=== PATIENT | female | born 1975 | race Caucasian/White ===

== ENCOUNTER 2024-09-29 18:57 | Emergency (ER) | payer BC, SELFPAY ==
--- OUTSIDE RECORDS SUMMARY | 2024-09-29 19:01 | XMS_ITS | Encounter Summary ---
Author Organization [facility] Address [address] [place] [address] Care Team Providers Care Real Estate Investor Name Role Phone Rusty Gamble PA-C Primary Care Provider [phone] Rusty Gamble PA-C Unavailable [phone] Rusty Gamble PA-C Unavailable [phone] Reason for Visit * Reason Onset Date Comments Lab Result Notice 07/05/2017 Encounter Details Date Type Department Care Team (Late st Contact Info) Description 07/05/2017 [facility] Medical Advice [address], [address] [place] [address] Rusty Gamble PA-C [address] [place] [address] Lab Result Notice Social History Tobacco Use Types Packs/Day Years Used Date Smoking Tobacco: Former Cigarettes Q uit: 02/19/2016 Smokeless Tobacco: Never Comments:pt does not want fu rther information on smoking cesation Alcohol Use Standard Drinks/Week Comments No 0 (1 standard drink = 0.6 oz pur e alcohol) occasionally - 1/wk Comments No Sex and Gender Information Value Date Recorded Sex Assigned at Not on file 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 Gender Identity Not on file Sexual Orientation Not on file documented as of this encounter Plan of Treatment Not on file documented as of this encounter Visit Diagnoses Not on filedocumented in this encounter Additional Health Concerns Assessment Noted Time PHQ-9 Depression Total Score: 1 06/28/20 17 3:34 PM CDT documented as of this encounter Care Teams Real Estate Investor Relationship Specialty Start Date End Date Rusty Gamble PA-C PCP - General Physician Paint Maker - Medical 05/16/16 Rusty Gamble PA-C [address] [address] PCP - Assigned PCP 07/07/17 11/25/18 Rusty Gamble PA-C [id number] [address] Assigned PCP 07/07/17 05/13/21 documented as of this encounter
--- OUTSIDE RECORDS SUMMARY | 2024-09-29 19:01 | XMS_ITS | Encounter Summary ---
Author Organization [facility] Address [address] [place] [address]. [place] [address] Care Team Providers Care Community Coordinator Name Role Phone Rusty Gamble PA-C Primary Care Provider [phone] Rusty Gamble PA-C Unavailable [phone] Rusty Gamble PA-C Unavailable [phone] Reason for Visit * Reason Onset Date Comments Refill Request 05/21/2017 Levothyroxine Encounter Details Date Type Department Care Team (Late st Contact Info) Description 05/21/2017 [facility] Medical Advice [address], [address] [place] [address] Rusty Gamble PA-C [address] [place] [address] Refill Request (Levothyroxine) Social History Tobacco Use Types Packs/Day Years [...] on file 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 Gender Identity Not on file Sexual Orientation Not on file documented as of this encounter Miscellaneous Notes * Telephone Encounter - Rosalva Cornejo RN - 05/21/2017 9:03 AM CDT Levothyroxine Last Written Prescription Date: 10/08/2016 Last Quantity: 90, # refills: 1 Last Office Visit with [facility], [facility] or [facility] prescribing provider: 12/24/2016 TSH Date Value Ref Range Status 10/05/2016 1.04 0.40 - 4.00 mU/L Final Medication is being filled for 1 time refill only due to: Patient needs to be seen because patient was advised to follow up in 6 months for blood sugars and thyroid. Patient notified via [employer]. Rosalva Cornejo RN documented in this encounter Plan of Treatment Not on file documented as of this encounter Visit Diagnoses Diagnosis Other specified hypothyroidism documented in this encounter Additional Health Concerns Assessment Noted Time PHQ-9 Depression Total Score: 1 12/09/19 17 7:06 AM CDT documented as of this encounter Care Teams Community Coordinator Relationship Specialty Start Date End Date Rusty Gamble PA-C PCP - General Physician Sales Supervisor - Medical 05/16/16 Rusty Gamble PA-C [address] [place] [address] PCP - Assigned PCP 07/07/17 11/25/18 Rusty Gamble [place] [address] [place] [address] Assigned PCP 07/07/17 05/13/21 documented as of this encounter
--- OUTSIDE RECORDS SUMMARY | 2024-09-29 19:01 | XMS_ITS | Clinical Summary ---
Author Organization [facility] Address [address] [place] [address] Care Team Providers Care C.O.D. Biller Name Role Phone Rusty Gamble PA-C Primary Care Provider Allergies No known active allergies Medications * This document contains information received from the source organization and may not represent a complete record from that organization. levothyroxine (SYNTHROID/LEVOTH ROID) 175 MCG tabletIndications :Hypothyroidism, unspecified type TAKE ONE TABLET BY MOUTH ONCE DAILY 30 tablet 11 11/07/2017 Active metFORMIN (GLUCOPHAGE) 500 MG tabletIndications :Prediabetes Take 1 tablet (500 mg) by mouth 2 times daily (with meals) 180 tablet 1 05/13/2018 Active sertraline (ZOLOFT) 100 MG tabletIndications :Anxiety 1 tablet orally daily 90 tablet 1 07/18/2018 Active losartan (COZAAR) 25 MG tabletIndications :Essential hypertension TAKE 1 TABLET BY MOUTH ONCE DAILY 90 tablet 09/19/2018 Active Active Problems Problem Noted Date Diagnosed Date Anxiety 06/28/2017 Cholecystitis 10/23/2016 Biliary colic 10/22/2016 Adjustment disorder with depressed mood 08/08/20 16 obesity 11/01/2015 Postsurgical hypothyroidism 11/01/2015 History of thyroidectomy 01/17/2012 Hypothyroidism 01/17/2012 Resolved Problems Problem Noted Date Diagnosed Date Resolved Date Gestational diabetes mellitus, class A2 12/19/2011 05/13/2018 Immunizations Name Administration Dates Next Due DTaP, Unspecified 08/09/1999 Influenza Vaccine, 6+MO IM ( QUADRIVALENT W/PRESERVATIVES) 05/18/2017 MMR 08/09/1999 OPV, unspecified 08/09/1999 TDAP Vaccine (Adacel) 01/19/2012 Td (Adult), Adsorbed 03/18/2003 Family History Medical History Relation Comments Coronary Artery Disease Father CABG Diabetes Father Heart Disease Father Cancer Maternal Grandmother pancreatiti s Thyroid Disease Mother Thyroid Disease Sister 2 Relation Status Comments Brother Alive Father Alive Maternal Grandfather Maternal Grandmother Mother Alive Paternal Grandfather Paternal Grandmother Sister 1 Alive Sister 2 Son Alive Social History Tobacco Use Types Packs/Day Years Used Date Smoking Tobacco: Former Cigarettes Q uit: 02/19/2016 Smokeless Tobacco: Never Tobacco Cessation:Ready to Q uit: No Comments:pt does not want further information on smoking cesation Alcohol Use Standard Drinks/Week Comments No 0 (1 standard drink = 0.6 oz pur e alcohol) occasionally - 1/wk PHQ-2 Answer Date Recorded PHQ-2 Score 0 05/13/2018 Adolescent Education Answer Date Record ed Getting School Help Needed Not on file 06/19 Comments No Sex and Gender Information Value Date Recorded Sex Assigned at Not on file 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 Gender Identity Not on file Sexual Orientation Not on file Last Filed Vital Signs Vital Sign Reading Time Taken Comments Blood Pressure 126/88 06/26/2018 10:18 AM CDT Pulse 80 06/26/2018 10:07 AM CDT Temperature 37.2 C (98.9 F) 05/13/2018 4:51 PM CDT Respiratory Rate 18 06/13/2018 2:05 PM CDT Oxygen Saturation 97% 06/26/2018 10:07 AM CDT Inhaled Oxygen Concentration - - Weight 132.9 kg (293 lb) 05/13/2018 4:51 PM CDT Height 168.9 cm (5' 6.5) 11/04/2017 8:55 AM TRAIN PLANNER Body Mass Index 46.58 11/04/2017 8:55 AM TRAIN PLANNER Plan of Treatment Not on file Insurance [place] [address] [place] [address] Advance Directives For more information, please contact: [phone] * Full Code (Latest Code Status on File) Date Activated Date Inactivated Comments 10/23/2016 5:19 PM 10/24/2016 12:29 PM * Full Code Date Activated Date Inactivated Comments 10/22/2016 9:01 PM 10/23/2016 5:19 PM Care Teams C.O.D. Biller Relationship Specialty Start Date End Date Rusty Gamble PA-C PCP - General Physician Munitions Factory Worker - Medical 05/16/16
--- OUTSIDE RECORDS SUMMARY | 2024-09-29 19:01 | XMS_ITS | Encounter Summary ---
Author Organization [facility] Address [address] [place] [address] Care Team Providers Care Reinsurance Accountant Name Role Phone Rusty Gamble PA-C Primary Care Provider [phone] Rusty Gamble PA-C Unavailable [phone] Rusty Gamble PA-C Unavailable [phone] Encounter Details Date Type Department Care Team (Late st Contact Info) Description 01/10/2018 [facility] Medical Advice [address], [address] [place] [address] Nida Escalera APRN [facility] [address] [place], [place] [id number] Social History Tobacco Use Types Packs/Day Years [...] on file 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 Gender Identity Not on file Sexual Orientation Not on file documented as of this encounter Plan of Treatment Not on file documented as of this encounter Visit Diagnoses Not on filedocumented in this encounter Additional Health Concerns Assessment Noted Time PHQ-9 Depression Total Score: 5 01/12/20 18 7:40 AM CDT documented as of this encounter Care Teams Reinsurance Accountant Relationship Specialty Start Date End Date Rusty Gamble PA-C PCP - General Physician Tube Depatcher - Medical 05/16/16 Rusty Gamble PA-C [address] [address] [address] PCP - Assigned PCP 07/07/17 11/25/18 Rusty Gamble PA-C [address] [address] [address] Assigned PCP 07/07/17 05/13/21 documented as of this encounter
--- OUTSIDE RECORDS SUMMARY | 2024-09-29 19:01 | XMS_ITS | Clinical Summary ---
Author Organization [employer] Address [place], [place] [address] Care Team Providers Care Delicatessen Department Manager Name Role Phone CuevaKeisha NP Primary Care Provider [phone] Allergies No known active allergies Medications CPAPIndications :Severe obstructive sleep apnea CPAP machine for home use at pressure: 4-16 cmw , Heated humidifier x 1 q 5 yr, Humidifier chamber x 1 q 6 mo, Nasal interface mask x 1 q 3 mos, Nasal pillow x 2 q mo x1 q 3mos, with cushion x 1 q mo, Heated tubing x 1 q 3 mo, Headgear x 1 q 6 mo, Filters: Disposable x 2 q mo non-disposable filters x1 q 6mo, Length of Need: 99 months, Frequency of use: Daily 1 Each 11 10/20/19 22 Active polyethylene glycol-electrol yte (GOLYTELY) 236-22.74-6.74 -5.86 gram suspensionIndic ations:Encounte r for screening colonoscopy Drink 2 liters the day before the procedure and 2 liters 6 hours prior to procedure 4000 mL 08/02/20 23 Active aspirin (ECOTRIN) 81 mg enteric coated tabletIndicatio ns:Controlled type 2 diabetes mellitus without complication, without long-term current use of insulin (HC) TAKE ONE TABLET BY MOUTH EVERY DAY WITH A MEAL 90 Tablet 3 02/06/20 24 Active dulaglutide (TRULICITY) 3 mg/0.5 mL subcutaneous penIndications: Controlled type 2 diabetes mellitus without complication, without long-term current use of insulin (HC) Inject 3 mg subcutaneous once weekly. 6 mL 3 02/07/20 24 Active buPROPion (WELLBUTRIN SR) 150 mg Sustained-Relea se tabletIndicatio ns:Anxiety and depression Take 1 Tablet (150 mg) by mouth two times daily. 180 Tablet 1 02/07/20 24 Active levothyroxine (SYNTHROID) 200 mcg tabletIndicatio ns:Hypothyroidi sm (acquired) Take 1 Tablet (200 mcg) by mouth once daily. 90 Tablet 1 02/07/20 24 Active losartan (COZAAR) 50 mg tabletIndicatio ns:HTN (hypertension) Take 1 Tablet (50 mg) by mouth once daily. 90 Tablet 1 02/07/20 24 Active metFORMIN (GLUCOPHAGE) 500 mg tabletIndicatio ns:Controlled type 2 diabetes mellitus without complication, without long-term current use of insulin (HC) Take 2 Tablets (1,000 mg) by mouth two times daily with meals. 400 Tablet 1 02/07/20 24 Active sertraline (ZOLOFT) 100 mg tabletIndicatio ns:Anxiety and depression TAKE ONE TABLET BY MOUTH EVERY DAY 90 Tablet 1 07/24/20 24 Active traZODone (DESYREL) 150 mg tabletIndicatio ns:Difficulty sleeping TAKE ONE TABLET BY MOUTH AT BEDTIME . MAY REPEAT ONCE 180 Tablet 09/07/20 24 Active atorvastatin (LIPITOR) 20 mg tabletIndicatio ns:Hypercholest erolemia TAKE ONE TABLET BY MOUTH AT BEDTIME 90 Tablet 09/07/20 24 Active atorvastatin (LIPITOR) 20 mg tabletIndicatio ns:Hypercholest erolemia Take 1 Tablet (20 mg) by mouth at bedtime. 90 Tablet 1 02/07/20 24 2023 Discontinued traZODone (DESYREL) 150 mg tabletIndicatio ns:Difficulty sleeping Take 1 Tablet (150 mg) by mouth at bedtime, may repeat once. 180 Tablet 1 02/07/20 24 2023 Discontinued Active Problems Problem Noted Date Diagnosed Date Pap smear for cervical cancer screening 06/23/20 22 Overview (08/21/2022): 06/2022 NIL/HPV negative. Plan: Pap/HPV due 06/2027. ELIZABETH (obstructive sleep apnea) 05/16/2019 Hypercholesterolemia 03/04/2019 Overview (03/04/2019): 02/2019: Started on Lipitor 20 mg. Controlled type 2 diabetes kadi josue without complication, without long-term current use of insulin 03/03/2019 Overview (03/03/2019): Prediabetes range up to 02/2019 A1C of 6.5. Metformin increased 2,000 mg twice a day Myopia of both eyes with astigmatism 11/25/2018 Retained tympanostomy tubes 08/200911/14/2010 Dysfunction of eustachian tube 11/14/2010 Chronic rhinitis 11/14/2010 Adjustment disorder with mixed anxiety and depre ssed mood 04/25/2009 Tobacco use disorder 01/01/2006 Overview (01/01/2006): 1 ppd. started age 20 Depressive disorder, not elsewhere classified Herpes simplex without mention of complication 0 01/01/2006 HYPOTHYROIDISM 03/27/2005 Overview (08/30/2008): CT neck: 07/2008 1. Markedly enlarged heterogenous thyroid gland, consistent with a multinodular goiter, with marked enlargement of the right side of the thyroid gland. 2. No other neck mass identified. 3. Deviation of the trachea to the left, with mild side to side narrowing. 4. Multiple small to intermediate size lymph nodes, without evidence for pathologically enlarged lymph nodes. FNA 03/2008 THYROID, INFERIOR RIGHT LOBE, ULTRASOUND GUIDED FNA WITH IMMEDIATE PATHOLOGIST ADEQUACY ASSESSMENT: 1. Findings compatible with Talia's (lymphocytic) thyroiditis 2. No cytologic evidence of malignancy 3. See microscopic description and comment OBESITY NOS 02/25/2002 Hypertension Resolved Problems Problem Noted Date Diagnosed Date Resolved Date DISORDER, CARBOHYDRATE METABOLISM NOS 02/25/2002 01/01/2006 Hirsutism 02/25/2002 01/01/2006 Other acne 02/25/2002 01/01/2006 Prediabetes 03/03/2019 Encounters Date Type Department Care Team Description 09/03/2024 Refill [facility] [address] [place] [address] Cueva, Keisha E, SAFEKEEPING CLERK Refill Request (Trazodone, Atorvastatin) 07/21/2024 Refill [facility] [address] [place], [place] [id number] Keisha Cueva NP Refill Request (Sertraline) from Last 3 Months Immunizations Name Administration Dates Next Due COVID-19 vaccine (Shefali-J& J) PF, MDV 01/28/2021 COVID-19 vaccine (Moderna 50mcg/0.5mL) 12YO+ BIVALENT PF, MDV 07/17/2022 COVID-19 vaccine (Moderna Satya marcial 50mcg/0.25mL) PF, MDV 09/21/2021 DTP 08/09/1999 Hepatitis B (Adult) 01/22/2022,09/21/2021,2020 Influenza, IIV4 07/17/2022,,10/28/2020,2017,05/18/2017 MMR 08/09/1999 Oral Polio Vaccine 08/09/1999 Pneumococcal Conj 20-valent (Prevnar 20) 07/17/2022 Pneumococcal Poly,23-Valent (Pneumovax) 10/28/2020 Td (Age >=7 Years) 03/18/2003 Tdap 01/22/2022,01/19/2012 Family History Medical History Relation Name Comments Diabetes Father Cancer Maternal Grandmother Thyroid cancer Pancreatitis Maternal Grandmother Thyroid Disease Maternal Grandmother Cancer-colon Paternal Grandmother Lupus Sister Thyroid Disease Sister Cancer-breast No Family History Relation Name Status Comments Brother Alive Father Alive Maternal Grandfather Maternal Grandmother Mother Alive Paternal Grandfather Paternal Grandmother Sister Social History Tobacco Use Types Packs/Day Years Used Date Smoking Tobacco: Every Day Cigarettes 0.5 15 Smokeless Tobacco: Never Tobacco Cessation:Ready to Q uit: Yes; Counseling Given: Yes Alcohol Use Standard Drinks/Week Comments Yes 0.8 (1 standard drin k = 0.6 oz pure alcohol) Alcoholic Drinks/day: infrequent <2 per month Humiliation, Afraid, Rape, and Kick questionnair e Answer Date Recorded Fear of Current or Ex-Partner No Emotionally Abused No 03/03/2019 Physically Abused No 03/03/2019 Sexually Abused No 03/03/2019 PHQ-2 Answer Date Recorded PHQ-2 TOTAL SCORE 0 02/07/2024 [facility] [place] [facility] - Occupational Stress Questionnaire Answer Date Recorded Feeling of Stress Not at all 03/03/2019 Exercise Vital Sign Answer Date Recorde d Days of Exercise per Week 0 days 2018 Minutes of Exercise per Session 0 min 03/03/2019 Social Connections Answer Date Recorded Frequency of Communication with Friends and Fami ly 0 05/23/2023 Financial Resource Strain Answer Date R ecorded Difficulty of Paying Living Expenses 3 05/23/2023 Difficulty of Paying Living Expenses Not on file 05/23/2023 Food Insecurity Answer Date Recorded Worried About Running Out of Food in the Last Ye ar 1 05/23/2023 Transportation Needs Answer Date Record ed Lack of Transportation (Medical) 1 05/23/2023 Housing Stability Answer Date Recorded Unable to Pay for Housing in the Last Year 1 05/23/2023 Comments No Sex and Gender Information Value Date Recorded Sex Assigned at Not on file Legal Sex Female 6: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 Gender Identity Not on file Sexual Orientation Not on file Occupation Industry Job Start Date Job End Date Not on file Not on file Not on file Not on file Obstetrics History Para Term AB IAB SAB Ectopic Multiple Livin g Live Births 0 0 0 0 0 0 0 0 0 0 Last Filed Vital Signs Vital Sign Reading Time Taken Comments Blood Pressure 132/84 02/07/2024 7:42 AM CDT Pulse 72 02/07/2024 7:42 AM CDT Temperature 36.6 C (97.8 F) 12/31/2022 2:21 PM CDT Respiratory Rate 18 12/31/2022 2:21 PM CDT Oxygen Saturation 96% 12/31/2022 4:56 PM CDT Inhaled Oxygen Concentration - - Weight 127 kg (280 lb) 02/07/2024 7:42 AM CDT Height 166.4 cm (5' 5.5) 02/07/2024 7:42 AM CDT Body Mass Index 45.89 02/07/2024 7:42 AM CDT Plan of Treatment Health Maintenance Due Date Last Done Comments Colonoscopy through age 75 2022 COVID-19 vaccine series ( season) 2024 07/17/2022, 09/21/2021, 01/28/2021 Influenza for age 9-49 05/24/2024 , 09/21/2021, 10/28/2020, Additional history exists Mammogram for age 45-75 07/12/2024 07/12/2023, 04/15 BMI (ht and wt on same day) for age 18+ 02/06/2025 02/07/2024, 05/23/2023, 07/17/2022, Additional history exists Depression screening for age 12+ 02/06/2025 02/07/2024, 05/24/2023, 05/23/2023, Additional history exists Pap test for age 21-65 07/17/2027 , 07/17/2022, 03/03/2019, Additional history exists Lipids for age 45-75 02/06/2029 02/07/2024, 05/23/2023, 07/17/2022, Additional history exists Tetanus booster 01/23/2032 01/22/2022, 12/23, 03/18/2003 Hepatitis B series for Diabetes Completed 01/22/2022, 09/21/2021, 10/28/2020 Tdap Completed 01/22/2022, 01/19/2012 Hepatitis C screening for ag e 18-79 Completed 07/17/2022 Pneumococcal series for age 6-49 Completed 07/17/20, 10/28/2020 HIV for age 15-65 Completed 05/23/2023 Procedures Procedure Name Priority Date/Time Associated Diagnosis Comments LIPID PANEL Routine 02/07/2024 7:39 AM CDT Controlled type 2 diabetes mellitus without complication, without long-term current use of insulin (HC) XR MAMMO SUMAN BILAT SCREEN Routine 07/12/2023 2:41 PM CDT Visit for screening mammogram ANTI HIV 1/2 Routine 05/23/2023 7:27 AM CDT Screening for HIV without presence of risk factors SENIOR DATA DEVELOPER THIN PREP PAP SCREEN IMAGED Routine 07/17/2022 8:00 AM CDT Pap smear for cervical cancer screening ANTI HCV Routine 07/17/2022 7:39 AM CDT Need for hepatitis C screening test from Last 3 Months or Most Recently Relevant to Health Maintenance Results * LIPID PANEL (02/07/2024 7:39 AM CDT) CHOLESTEROL,TOTAL 186 100 - 199 mg/dL 02/07/2024 5:28 PM CDT [facility] Comment: Cholesterol, Total Reference Ranges Desirable <200 mg/dL Borderline 200-239 mg/dL High >=240 mg/dL TRIGLYCERIDES 143 <150 mg/dL 02/07/2024 5:28 PM CDT [facility] HDL CHOLESTEROL 51 >40 mg/dL 5:28 PM CDT [facility] NON-HDL CHOLESTEROL 135 <145 mg/dl 02/07/2024 5:28 PM CDT [facility] CHOL/HDL RATIO 3.65 <4.50 02/07/2024 5:28 PM CDT [facility] LDL CHOLESTEROL 106 <=130 mg/dL 02/07/2024 5:28 PM CDT [facility] VLDL CHOLESTEROL 29 <=30 mg/dL 02/07/2024 5:28 PM CDT [facility] PROVIDER ORDERED STATUS RANDOM 02/07/2024 5:28 PM CDT [facility] Blood BLOOD SPECIMEN / Unknown Venipuncture / Unknown 02/07/2024 7:39 AM CDT 02/07/2024 7:44 AM CDT us Keisha Cueva NP CHEMISTRY Final Res ult [facility] [address] [place] [address], [place] * XR MAMMO SUMAN BILAT SCREEN (07/12/2023 2:41 PM CDT) Anatomical Region Laterality Modality BREASTS, Breast Left, Breast Right Bilateral Mammography Impressions 07/15/2023 11:28 AM CDT There is no radiographic evidence for malignancy. Recommend annual mammograms. MAMMOGRAM ASSESSMENT: ACR 1 Negative PATIENTS: You will also receive a letter with your examination results in an easy to read format. If you have questions about your results, please contact your referring provider. Narrative 07/15/2023 11:28 AM CDT For Patients: As a result of the Century Cures Act, medical imaging exams and procedure reports are released immediately into your electronic medical record. You may view this report before your referring provider. If you have questions, please contact your health care provider. XR MAMMO SUMAN BILAT SCREEN [[id number]] CLINICAL HISTORY: This is an asymptomatic 47 y.o. patient. INDICATION FOR EXAM: Mammogram Screening. TECHNIQUE: CC & MLO views were obtained. This study was evaluated with the assistance of Computer-Aided Detection. Breast Tomosynthesis was used in interpretation. COMPARISON FILM: Yes 04/15/20 FINDINGS: The breasts have scattered areas of fibroglandular density. There are no dominant masses, suspicious micro calcifications or areas of architectural distortion. us Keisha Cueva SAFEKEEPING CLERK MAMMO Final Res ult * ANTI HIV 1/2 (05/23/2023 7:27 AM CDT) HIV-1/HIV-2 SCREEN Non-Reacti ve Non-Reacti ve 05/25/2023 10:56 PM CDT [facility] LAB[facility]AT[facility] Comment:HIV-1 p24 and HIV-1/ HIV-2 Ab Not Detected. Blood BLOOD SPECIMEN / Unknown Venipuncture / Unknown 05/23/2023 7:27 AM CDT 05/23/2023 7:27 AM CDT us Keisha Cueva SAFEKEEPING CLERK SEND OUTS Final Res ult [facility] [address] [place] [address], [place] * SENIOR DATA DEVELOPER THIN PREP PAP SCREEN IMAGED (07/17/2022 8:00 AM CDT) Case Report Gynecologic Cytology Report Case: [id number] Authorizing Provider: Keisha Cueva NP Collected: 07/17/2022 0800 Ordering Location: [facility] Received: 07/17/2022 0828 Clinic First Screen: Jan Conroy Specimen: SENIOR DATA DEVELOPER ThinPrep Vial Screening, Cervical 08/05/2022 9:38 AM CEMENT GRINDING MILL OPERATOR [facility] INTERPRETATION/ RESULT NEGATIVE FOR INTRAEPITHELIAL LESION OR MALIGNANCY (NIL) (none) 08/05/2022 9:38 AM CEMENT GRINDING MILL OPERATOR [facility] ENTRAL LABORATORY IMEN ADEQUACY Satisfactory for evaluation Endocervical component present 08/05/2022 9:38 AM CEMENT GRINDING MILL OPERATOR [facility] ENTRAL LABORATORY HPV REQUEST HPV and PAP 08/05/2022 9:38 AM CEMENT GRINDING MILL OPERATOR [facility] ENTRAL LABORATORY Date of LMP 02/12/2022 08/05/2022 9:38 AM CEMENT GRINDING MILL OPERATOR [facility] ENTRAL LABORATORY Last Pap Date 03/03/19 08/05/2022 9:38 AM CEMENT GRINDING MILL OPERATOR [facility] LABORATORY-C ENTRAL LABORATORY Last Pap Result NIL 9:38 AM CEMENT GRINDING MILL OPERATOR [facility] ENTRAL LABORATORY Abnormal Pap or Brooks Bx in last 5 years No 08/05/2022 9:38 AM CEMENT GRINDING MILL OPERATOR [facility] ENTRAL LABORATORY Menstrual Status Irregular Periods 08/05/2022 9:38 AM CEMENT GRINDING MILL OPERATOR [facility] Brooks Bx Done Today No 08/05/2022 9:38 AM CEMENT GRINDING MILL OPERATOR [facility] Additional Information None given 08/05/2022 9:38 AM CEMENT GRINDING MILL OPERATOR [facility] Comment: Cytology is screened at [facility], Central Laboratory - [address], [place] [address] and [facility] - [address] [place] [address], [place] [address] and [facility] - [address] [place] [address] Interpreted at [facility] - [address] [place], [place] [address] Automated Review Successful 08/05/2022 9:38 AM [facility] Comment:Specimen processed s uccessfully by automated air tube releaser device, ThinPrep Imaging System, [employer] ANCILLARY TESTING SENIOR DATA DEVELOPER HPV Ordered, Please see separate report 08/05/2022 9:38 AM [facility] EN[facility] Note The pap test is a screening technique, not a diagnostic procedure. It is used primarily to screen for squamous cancers and precursor lesions. Published studies have shown that it is subject to both false negative and false positive results. The pap test should not be used as the sole means to diagnose or exclude pre-malignant and malignant lesions. 08/05/2022 9:38 AM [facility] ENTRMT LABORATORY Other (Cervical) Non-Blood / Unknown 07/17/2022 8:00 AM CDT 07/17/2022 8:28 AM CDT Keisha Cueva NP PATHOLOGY/CYTOLOGY Final Result Performing Organization Address [facility] Co de Phone Number [facility] [address] [place] [address], [place] * ANTI HCV (07/17/2022 7:39 AM CDT) HEPATITIS C ANTIBODY Non-React tasha Non-React tasha 07/19/2022 9:45 PM CDT [facility] Comment:Antibodies to HCV no t detected; does not exclude the possibility of exposure to HCV. Blood BLOOD SPECIMEN / Unknown Venipuncture / Unknown 07/17/2022 7:39 AM CDT 07/17/2022 7:39 AM CDT Keisha Cueva NP SEND OUTS Final Res ult Performing Organization Address City/[facility] Co de Phone Number [facility] [address] [place] [address], [place] from Last 3 Months or Most Recently Relevant to Health Maintenance Insurance [place] [address] Advance Directives * Full Code (Latest Code Status on File) Date Activated Date Inactivated Comments 10/29/2008 5:46 PM 10/31/2008 12:56 AM * Full Code Date Activated Date Inactivated Comments 10/29/2008 1:06 PM 10/29/2008 5:46 PM Care Teams Delicatessen Department Manager Relationship Specialty Start [place] [address] [place], [place] [id number] PCP - General Nurse Practitioner 08/05/18
--- OUTSIDE RECORDS SUMMARY | 2024-09-29 19:01 | XMS_ITS | Encounter Summary ---
Author Organization [place] Address [address] [place] [address]. [place] [address] Care Team Providers Care Clinical Nursing Manager Name Role Phone Rusty Gamble PA-C Primary Care Provider [phone] Rusty Gamble PA-C Unavailable [phone] Rusty Gamble PA-C Unavailable [phone] Reason for Visit * Reason Onset Date Comments Medication Refill 11/07/2017 levothyroxine (SYNTHROID/LEVOTHROID) 175 MCG tablet Encounter Details Date Type Department Care Team (Late st Contact Info) Description 11/06/[address] [facility] [address] [address] [facility] [address], [address] [place] [address] Rusty Gamble PA-C [address] [place] [address] Medication Refill (levothyroxine (SYNTHROID/LEVOTHROID) 175 MCG tablet) Social History Tobacco Use Types Packs/Day Years [...] on file Legal Sex Female 3:19 AM NECK SKEWER Gender Identity Not on file Sexual Orientation Not on file documented as of this encounter Miscellaneous Notes * Telephone Encounter - Rosalva Cornejo RN - 11/07/2017 11:32 AM CST Prescription approved per [facility] Refill Protocol. Rosalva Cornejo RN SKEWER * Telephone Encounter - Rosaura Scruggs - 11/07/2017 8:13 AM CST Requested Prescriptions Pending Prescriptions Disp Refills ??? levothyroxine (SYNTHROID/LEVOTHROID) 175 MCG tablet [Pharmacy Med Name: LEVOTHYROXIN 175MCG TAB] 30 tablet 1 Last Written Prescription Date: 07/03/17 Last Fill Quantity: 30, # refills: 1 Last Office Visit: 11/04/2017 Future Office Visit: Sig: TAKE ONE TABLET BY MOUTH ONCE DAILY Thyroid Protocol Passed 11/06/2017 5:48 PM Passed - Patient is 12 years or older Passed - Recent or future visit with authorizing provider's specialty Patient had office visit in the last year or has a visit in the next 30 days with authorizing provider. See Patient Info tab in inbasket, or Choose Columns in Meds & Orders section of the refill encounter. Passed - Normal TSH on file in past 12 months Recent Labs Lab Test 11/04/17 0935 TSH 2.03 Passed - No active on record If patient is or has had a positive test, please check TSH. Passed - No positive test in past 12 months If patient is or has had a positive test, please check TSH. SKEWER documented in this encounter Plan of Treatment Not on file documented as of this encounter Visit Diagnoses Diagnosis Hypothyroidism, unspecified type documented in this encounter Additional Health Concerns Assessment Noted Time PHQ-9 Depression Total Score: 1 06/28/20 17 3:34 PM CDT documented as of this encounter Care Teams Clinical Nursing Manager Relationship Specialty Start Date End Date Rusty Gamble PA-C PCP - General Physician Senior Resident Care Director - Medical 05/16/16 Rusty Gamble PA-C [address] [address] PCP - Assigned PCP 07/07/17 11/25/18 Rusty Gamble PA-C [address] [address] Assigned PCP 07/07/17 05/13/21 documented as of this encounter
--- OUTSIDE RECORDS SUMMARY | 2024-09-29 19:01 | XMS_ITS | Referral Summary ---
Author Organization [place] Address [address] [place] [address] Care Team Providers Care Compressor Engineer Name Role Phone Rusty Gamble PA-C Primary Care Provider [phone] Allergies No known active allergies Medications * [...] Vaccine (Adacel) 01/19/2012 Td (Adult), Adsorbed 03/18/2003 Social History Tobacco Use Types Packs/Day Years [...] on file Legal Sex Female 3:19 AM SALES AND BUSINESS DEVELOPMENT MANAGER Gender Identity Not on file Sexual Orientation [...] 168.9 cm (5' 6.5) 11/04/2017 8:55 AM SALES AND BUSINESS DEVELOPMENT MANAGER Body Mass Index 46.58 11/04/2017 8:55 AM SALES AND BUSINESS DEVELOPMENT MANAGER Plan of Treatment Not on file [place] [id number] MED[employer] CHO[employer] Advance Directives For more information, please contact: [phone] * Full Code (Latest Code Status on File) Date Activated Date Inactivated Comments 10/23/2016 5:19 PM 10/24/2016 12:29 PM * Full Code Date Activated Date Inactivated Comments 10/22/2016 9:01 PM 10/23/2016 5:19 PM Care Teams Compressor Engineer Relationship Specialty Start Date End Date Rusty Gamble PA-C PCP - General Physician Board Certified Family Physician - Medical 05/16/16
--- OUTSIDE RECORDS SUMMARY | 2024-09-29 19:01 | XMS_ITS | Encounter Summary ---
Author Organization [facility] Address [address] [place] [address]. [place] [address] Care Team Providers Care Analyst Programmer Name Role Phone Rusty Gamble PA-C Primary Care Provider [phone] Rusty Gamble PA-C Unavailable [phone] Rusty Gamble PA-C Unavailable [phone] Reason for Visit * Reason Onset Date Comments Erroneous encounter-disregard 05/22/2017 le vothyroxine (SYNTHROID/LEVOTHROID) 200 MCG tablet Encounter Details Date Type Department Care Team (Late st Contact Info) Description 05/22/[address], [address] [place] [address] Rusty Gamble PA-C [address] [place] [address] Erroneous encounter-disregard (levothyroxine (SYNTHROID/LEVOTHROID) 200 MCG tablet) Social History Tobacco Use Types [...] on file Legal Sex Female 3:19 AM BEARINGIZER Gender Identity Not on file Sexual Orientation Not on file documented as of this encounter Miscellaneous Notes * Telephone Encounter - Rosaura Scruggs - 05/23/2017 8:24 AM CDT 3 month Supply sent 05/21/17. levothyroxine (SYNTHROID/LEVOTHROID) 200 MCG tablet Last Written Prescription Date: 05/21/17 Last Quantity: 90, # refills: 0 Last Office Visit with [facility], P or [facility] prescribing provider: 12/24/2016 TSH Date Value Ref Range Status 10/05/2016 1.04 0.40 - 4.00 mU/L Final Fax sent to pharm informing above. Please disregard request. Rosaura Scruggs, XRT May 23, 2017 8:24 AM documented in this encounter Plan of Treatment Not on file documented as of this encounter Visit Diagnoses Diagnosis Other specified hypothyroidism documented in this encounter Additional Health Concerns Assessment Noted Time PHQ-9 Depression Total Score: 1 12/09/19 17 7:06 AM CDT documented as of this encounter Care Teams Analyst Programmer Relationship Specialty Start Date End Date Rusty Gamble PA-C PCP - General Physician Jd Edwards - Medical 05/16/16 Rusty Gamble PA-C [address] [address] [address] PCP - Assigned PCP 07/07/17 11/25/18 Rusty Gamble PA-C [address] [address] [address] Assigned PCP 07/07/17 05/13/21 documented as of this encounter
[2024-09-29 19:10] VITALS: BP 126/87; PULSE 77; RESP 17; TEMP 36.5; O2SAT 96; BMI 44.9
--- NOTE | 2024-09-29 20:06 | ED.NAVMDI ---
HPI - Nausea/Vomiting/Diarrhea General Chief complaint: Nausea/Vomiting Stated complaint: UP resp 3 wks-GI upset with back ache-vomiting Time Seen by Provider: 09/29/24 20:01 History of Present Illness HPI Narrative: This 48-year-old female comes in with her . She reports upper respiratory symptoms including cough and some fever starting about 3 weeks ago. Those symptoms resolved but now over the past several days she has had vomiting and diarrhea. She states that she has diabetes and has not taken any medicines or checked her blood sugars. She states that she her persistent vomiting has made her not want to try to take her medicines. She arrives here with normal vital signs. She does not report any abdominal pain. She does report some pain in her low back. She denies having any symptoms of dysuria. Related Data Home Medications ?Medication ?Instructions ?Recorded ?Confirmed aspirin 81 mg tablet,delayed 81 mg PO DAILY 09/29/24 09/29/24 release atorvastatin 20 mg tablet 20 mg PO QPM 09/29/24 09/29/24 bupropion HCl 150 mg tablet,12 hr 150 mg PO BID 09/29/24 09/29/24 sustained-release dulaglutide 3 mg/0.5 mL 3 mg subcut 09/29/24 subcutaneous pen injector (Trulicity) levothyroxine 200 mcg tablet 200 mcg PO DAILY 09/29/24 09/29/24 losartan 50 mg tablet 50 mg PO DAILY 09/29/24 09/29/24 metformin 500 mg tablet 1,000 mg PO BID 09/29/24 09/29/24 sertraline 100 mg tablet 100 mg PO DAILY 09/29/24 09/29/24 trazodone 150 mg tablet 150 mg PO QPM 09/29/24 09/29/24 trazodone 50 mg tablet 25 - 100 mg PO QPM 09/29/24 09/29/24 Allergies Allergy/AdvReac Type Severity Reaction Status Date / Time No Known Drug Allergies Allergy Verified 09/29/24 19:17 Review of Systems Status of ROS: Reports: 10 or more systems reviewed and unremarkable except as noted in History and below Narrative: Constitutional: No fevers, no weight gain or loss. Eyes: No discharge. No vision changes. HENT: No congestion, no sore throat, no ear pain. Cardiovascular: No chest pain, no palpitations. Respiratory: No shortness of breath, no wheezes, no cough. Gastrointestinal: No abdominal pain. Vomiting and diarrhea as described above. Genitourinary: No dysuria, no hematuria. Musculoskeletal: Normal range of motion. Skin: No rashes, no pruritis. Neurological: No dizziness, weakness, sensory change, speech change. Endo/Heme/Allergies: No bruising or bleeding. No polydipsia. Pysch: no suicidality, no anxiety, no insomnia. All other systems reviewed and are negative. PFSH PFSH Social History How often do you have a drink containing alcohol: never AUDIT-C Alcohol total score: 0 Non-prescribed substance use: denies use Exam Narrative: Exam Narrative: Constitutional: Well-developed, well-nourished, no acute distress. HEENT: Normocephalic, atraumatic. Neck: Normal range of motion. Nontender. Supple. Heart: Regular. No murmurs. Normal rate. Intact distal pulses. Lungs: Clear to auscultation. No chest discomfort. No wheezes, rhonchi, or rales. Abdomen: Normal bowel sounds. Nontender. No rebound tenderness. Genitalia: Deferred. Back: No midline tenderness. Normal range of motion. Extremities: Normal range of motion. No injury. Skin: Intact. No rash. Warm. No erythema or pallor. Neurologic: No altered sensation. No weakness. Alert and oriented. Psychiatric: No suicidality. No anxiety or depression. No insomnia. Nursing notes and vitals signs are reviewed. Const: Vital Signs, click to edit/add: Vital Signs - 24 hr 09/29/24 19:10 09/29/24 22:24 09/29/24 23:58 Temperature 97.7 F 97.4 F L Pulse Rate [Right Pulse Oximeter] 77 70 71 Respiratory Rate 17 17 18 Blood Pressure [Ri ght Upper Arm] 126/87 130/74 136/88 Pulse Oximetry 96 95 98 Oxygen Delivery Me thod Room Air Room Air Room Air Course Vital Signs Vital signs: Initial Vital Signs Temperature 97.7 F 09/29/24 19:10 Temperature Source Temporal Artery Scan 09/29/24 19:10 Pulse Rate 77 09/29/24 19:10 Pulse Rhythm Regular 09/29/24 19:10 Pulse Strength 3+ Normal 09/29/24 19:10 Respiratory Rate 17 09/29/24 19:10 Blood Pressure 126/87 09/29/24 19:10 Blood Pressure Mean 100 09/29/24 19:10 Blood Pressure Position Sitting 09/29/24 19:10 Pulse Oximetry 96 09/29/24 19:10 Oxygen Delivery Method Room Air 09/29/24 19:10 Vital Signs Temperature 97.7 F 09/29/24 19:10 Pulse Rate 77 09/29/24 19:10 Respiratory Rate 17 09/29/24 19:10 Blood Pressure 126/87 09/29/24 19:10 Pulse Oximetry 96 09/29/24 19:10 Oxygen Delivery Method Room Air 09/29/24 19:10 Temperature 97.4 F L 09/29/24 23:58 Pulse Rate 71 09/29/24 23:58 Respiratory Rate 18 09/29/24 23:58 Blood Pressure 136/88 09/29/24 23:58 Pulse Oximetry 98 09/29/24 23:58 Oxygen Delivery Method Room Air 09/29/24 23:58 Medications Administered Medications: Generic Name Dose Route Start Last Admin Trade Name Freq PRN Reason Stop Dose Admin Hydromorphone HCl 0.5 mg 09/29/24 23:57 09/30/24 00:05 Hydromorphone 0.5 Mg/0.5 Ml Inj IVP 09/29/24 23:58 0.5 mg ONCE ONE Administration Discontinued Medications Generic Name Dose Route Start Last Admin Trade Name Freq PRN Reason Stop Dose Admin Sodium Chloride 1,000 mls @ 1,000 mls/hr 09/29/24 20:15 09/29/24 22:20 0.9 % Sodium Chloride 1000 Ml IV 09/29/24 21:14 Infused .Q1H DECLAN Infusion Ketorolac Tromethamine 30 mg 09/29/24 22:16 09/29/24 22:20 Ketorolac 30 Mg/Ml Inj IVP 09/29/24 22:17 30 mg ONCE ONE Administration Ondansetron HCl 4 mg 09/29/24 20:04 09/29/24 21:20 Ondansetron 2 Mg/Ml Inj IVP 09/29/24 20:05 4 mg ONCE ONE Administration MDM - Nausea/Vomiting/Diarrhea MDM Narrative Medical decision making narrative: This patient comes in reporting nausea vomiting and diarrhea but also has back pain. An IV was established where she received a L of normal saline along with Toradol and Zofran. Later she did receive Dilaudid also as she can not planed of ongoing back pain. Her urinalysis did return with microscopic hematuria and the patient states that she does have a history of kidney stones. The CT scan of the abdomen and pelvis is obtained therefore and does not show any of evidence of obstructive uropathy. Additionally her lab results also returned with reassuring findings. The patient is feeling better with these treatments and is okay to return home. I did provide [facility] prescriptions for Toradol and Zofran. Lab Data Labs: Lab Results 09/29/24 09/29/24 Range/Units 20:08 21:12 WBC 6.46 (4.50-11.00) K/uL RBC 4.77 (4.00-5.20) m/uL Hgb 13.5 (12.0-16.0) gm/dL Hct 41.3 (33.0-51.0) % MCV 87 (80-100) fL MCH 28 (26-34) pg MCHC 33 (32-36) gm/dL RDW Coeff of Maria Del Carmen 13.1 (11.5-15.5) % Plt Count 270 (140-440) K/uL Neut % (Auto) 53.4 (42.0-72.0) % Lymph % (Auto) 37.8 (20-44) % Conway % (Auto) 6.2 (0.0-11.0) % Eos % (Auto) 1.4 (0.0-7.0) % Baso % (Auto) 0.3 (0.0-3.0) % Neut # (Auto) 3.45 (1.7-7.0) K/uL Lymph # (Auto) 2.44 (0.90-2.90) K/uL Conway # (Auto) 0.40 (0.00-0.90) K/UL Eos # (Auto) 0.09 (0.00-0.50) K/uL Baso # (Auto) 0.02 (0.00-0.30) K/uL Abs Immat Gran (auto) 0.06 (0.00-0.30) K/uL Imm/Tot Granulo (auto) 0.9 % Sodium 135 (135-149) mmol/L Potassium 3.3 L (3.6-5.1) mmol/L Chloride 99 (96-114) mmol/L Carbon Dioxide 25 (20-32) mmol/L Anion Gap 11 (7-15) mEq/L BUN 17 (5-24) mg/dL Creatinine 0.7 (0.5-1.5) mg/dL Estimated Creat Clear 90.36 Estimated GFR 108 ml/min Glucose 176 H (60-115) mg/dL Calcium 9.0 (8.4-10.6) mg/dL Urine Color Yellow (Yellow) Urine Appearance Clear (Clear) Urine pH 6.0 (5.0-8.5) Ur Specific Latham 1.025 (1.000-1.030) Urine Protein 1+ A (Negative) Urine Glucose (UA) Negative (Negative) Urine Ketones Negative (Negative) Urine Blood 3+ A (Negative) Urine Nitrite Negative (Negative) Urine Bilirubin Negative (Negative) Urine Urobilinogen 1.0 (0.2-1.0) Ur Leukocyte Esterase Negative (Negative) Urine RBC 25-50 A (0-2) Urine WBC 0-2 (0-5) Ur Squamous Epith Cells Many A (None-Few) Amorphous Sediment Moderate A (None) Urine Bacteria Many A (None) Imaging Data CT scan - abdomen: Radiologist's impression: 1. No acute findings in the abdomen or pelvis on this noncontrast exam. No hydronephrosis or obstructing urinary calculi. 2. Indeterminate left adrenal nodule. This could be further evaluated with nonemergent adrenal protocol CT or MRI. 3. Noncalcified pulmonary nodules in the right middle lobe measuring up to 4 mm. Follow-up per Fleischner society guidelines. 4. Mild splenomegaly. Discharge Plan Discharge Clinical Impression: Gastroenteritis Patient Disposition: Home, Self-Care Condition: Improved Additional Instructions: Take medication as needed and directed. Follow up with MD return if worsening. Prescriptions: No Action losartan 50 mg tablet 50 mg PO DAILY metformin 500 mg tablet 1,000 mg PO BID bupropion HCl 150 mg tablet sustained-release 12 hr 150 mg PO BID atorvastatin 20 mg tablet 20 mg PO QPM trazodone 50 mg tablet 25 - 100 mg PO QPM sertraline 100 mg tablet 100 mg PO DAILY aspirin 81 mg tablet,delayed release (DR/EC) 81 mg PO DAILY trazodone 150 mg tablet 150 mg PO QPM levothyroxine 200 mcg tablet 200 mcg PO DAILY Trulicity 3 mg/0.5 mL pen injector 3 mg subcut Follow Up/Referrals: Keisha Cueva, WENDY, EDUCATION DIRECTOR [Primary Care Provider] - Stand Alone Forms: Usentric Info Instructions
[2024-09-29 20:54] LABS: Appearance Urine Clear (Clear); Bilirubin Urine Negative (Negative); Blood Urine 3+ (Negative); Color Urine Yellow (Yellow); Glucose Urine Negative (Negative); Ketones Urine Negative (Negative); Leukocyte Esterase Urine Negative (Negative); Nitrite Urine Negative (Negative); Protein Urine 1+ (Negative); Specific Gravity Urine 1.025 (1.000-1.030)
--- OUTSIDE RECORDS SUMMARY | 2024-09-29 20:57 | XMS_ITS | Clinical Summary ---
Author Organization [facility] Address [address] [place] [address] Care Team Providers Care Journeyman Welder Name Role Phone Rusty Gamble PA-C Primary [...] on file Legal Sex Female 3:19 AM AUDIO DIRECTOR Gender Identity Not on file Sexual Orientation [...] 168.9 cm (5' 6.5) 11/04/2017 8:55 AM AUDIO DIRECTOR Body Mass Index 46.58 11/04/2017 8:55 AM AUDIO DIRECTOR Plan of Treatment Not on file [place] [id number] MEDICA CHOICE Advance Directives For more information, please contact: [phone] * Full Code (Latest Code Status on File) Date Activated Date Inactivated Comments 10/23/2016 5:19 PM 10/24/2016 12:29 PM * Full Code Date Activated Date Inactivated Comments 10/22/2016 9:01 PM 10/23/2016 5:19 PM Care Teams Journeyman Welder Relationship Specialty Start Date End Date Rusty Gamble PA-C PCP - General Physician Elastic Assembler - Medical 05/16/16
--- OUTSIDE RECORDS SUMMARY | 2024-09-29 20:57 | XMS_ITS | Encounter Summary ---
Author Organization [facility] Address [address] [place] [address]. [place] [address] Care Team Providers Care Executive Services Administrator Name Role Phone Rusty Gamble PA-C Primary Care Provider [phone] Rusty Gamble PA-C Unavailable [phone] Rusty Gamble PA-C Unavailable [phone] Reason for Visit * Reason Onset Date Comments Medication Refill 11/07/2017 levothyroxine (SYNTHROID/LEVOTHROID) 175 MCG tablet Encounter Details Date Type Department Care Team (Late st Contact Info) Description 11/06/[address] [facility] [address] [facility], [address] [place] [address] Rusty Gamble PA-C [address] [place] [address] Medication Refill (levothyroxine (SYNTHROID/LEVOTHROID) 175 [...] on file Legal Sex Female 3:19 AM QUANTITATIVE EQUITY HEAD Gender Identity Not on file Sexual Orientation Not on file documented as of this encounter Miscellaneous Notes * Telephone Encounter - Rosalva Cornejo RN - 11/07/2017 11:32 AM CST Prescription approved per [facility] Refill Protocol. oRsalva Cornejo RN TITATIVE EQUITY HEAD * Telephone Encounter - Rosaura Scruggs - [...] had a positive test, please check TSH. TITATIVE EQUITY HEAD documented in this encounter Plan of Treatment Not on file documented as of this encounter Visit Diagnoses Diagnosis Hypothyroidism, unspecified type documented in this encounter Additional Health Concerns Assessment Noted Time PHQ-9 Depression Total Score: 1 06/28/20 17 3:34 PM CDT documented as of this encounter Care Teams Executive Services Administrator Relationship Specialty Start Date End Date Rusty Gamble PA-C PCP - General Physician Care Giver - Medical 05/16/16 Rusty Gamble PA-C [address] [address] [address] PCP - Assigned PCP 07/07/17 11/25/18 Rusty Gamble PA-C [address] [address] [address] Assigned PCP 07/07/17 05/13/21 documented as of this encounter
--- OUTSIDE RECORDS SUMMARY | 2024-09-29 20:57 | XMS_ITS | Encounter Summary ---
Author Organization [facility] Address [address] [place] [address] Care Team Providers Care Turret Punch Operator Name Role Phone Rusty Gamble PA-C Primary Care Provider [phone] Rusty Gamble PA-C Unavailable [phone] Rusty Gamble PA-C Unavailable [phone] Encounter Details Date Type Department Care Team (Late st Contact Info) Description 01/10/2018 [facility] Advice [address], [address] [place] [address] Nida Escalera APRN RESIDENT ASSISTANT CNA [address] [place], [place] [id number] Social History Tobacco Use Types Packs/Day Years [...] on file Legal Sex Female 3:19 AM SOFTWARE DEVELOPMENT INTERN Gender Identity Not on file Sexual Orientation Not on file documented as of this encounter Plan of Treatment Not on file documented as of this encounter Visit Diagnoses Not on filedocumented in this encounter Additional Health Concerns Assessment Noted Time PHQ-9 Depression Total Score: 5 01/12/20 18 7:40 AM CDT documented as of this encounter Care Teams Turret Punch Operator Relationship Specialty Start Date End Date Rusty Gamble PA-C PCP - General Physician Data Control Assistant - Medical 05/16/16 Rusty Gamble PA-C [address] [address] [address] PCP - Assigned PCP 07/07/17 11/25/18 Rusty Gamble PA-C [address] [address] [address] Assigned PCP 07/07/17 05/13/21 documented as of this encounter
--- OUTSIDE RECORDS SUMMARY | 2024-09-29 20:57 | XMS_ITS | Encounter Summary ---
Author Organization [facility] Address [address] [place] [address] Care Team Providers Care Customer Acquisition Specialist Name Role Phone Rusty Gamble PA-C Primary Care Provider [phone] Rusty Gamble PA-C Unavailable [phone] Rusty Gamble PA-C Unavailable [phone] Reason for Visit * Reason Onset Date Comments Lab Result Notice 07/05/2017 Encounter Details Date Type Department Care Team (Late st Contact Info) Description 07/05/2017 [facility] Medical Advice [address], [address] [place] [address] Rusty Gamble PA-C [address] [place] [address] Lab Result Notice Social History [...] on file Legal Sex Female 3:19 AM COMMERCIAL ROOFING ESTIMATOR Gender Identity Not on file Sexual Orientation Not on file documented as of this encounter Plan of Treatment Not on file documented as of this encounter Visit Diagnoses Not on filedocumented in this encounter Additional Health Concerns Assessment Noted Time PHQ-9 Depression Total Score: 1 06/28/20 17 3:34 PM CDT documented as of this encounter Care Teams Customer Acquisition Specialist Relationship Specialty Start Date End Date Rusty Gamble PA-C PCP - General Physician Configuration Analyst - Medical 05/16/16 Rusty Gamble PA-C [address] [address] [address] PCP - Assigned PCP 07/07/17 11/25/18 Rusty Gamble PA-C [address] [address] [address] Assigned PCP 07/07/17 05/13/21 documented as of this encounter
--- OUTSIDE RECORDS SUMMARY | 2024-09-29 20:57 | XMS_ITS | Referral Summary ---
Author Organization [facility] Address [address] [place] [address] Care Team Providers Care Professional Housing Consultant Name Role Phone Rusty Gamble PA-C Primary [...] on file Legal Sex Female 3:19 AM TRANSPORTATION COORDINATOR Gender Identity Not on file Sexual Orientation [...] 168.9 cm (5' 6.5) 11/04/2017 8:55 AM TRANSPORTATION COORDINATOR Body Mass Index 46.58 11/04/2017 8:55 AM TRANSPORTATION COORDINATOR Plan of Treatment Not on file [place] [address] MEDICA CHOICE Advance Directives For more information, please contact: [phone] * Full Code (Latest Code Status on File) Date Activated Date Inactivated Comments 10/23/2016 5:19 PM 10/24/2016 12:29 PM * Full Code Date Activated Date Inactivated Comments 10/22/2016 9:01 PM 10/23/2016 5:19 PM Care Teams Professional Housing Consultant Relationship Specialty Start Date End Date Rusty Gamble PA-C PCP - General Physician Enterprise Engineer - Medical 05/16/16
--- OUTSIDE RECORDS SUMMARY | 2024-09-29 20:57 | XMS_ITS | Encounter Summary ---
Author Organization [facility] Address [address] [place] [address]. [place] [address] Care Team Providers Care Hydraulic Repairer Name Role Phone Rusty Gamble PA-C Primary Care Provider [phone] Rusty Gamble PA-C Unavailable [phone] Rusty Gamble PA-C Unavailable [phone] Reason for Visit * Reason Onset Date Comments Erroneous encounter-disregard 05/22/2017 le vothyroxine (SYNTHROID/LEVOTHROID) 200 MCG tablet Encounter Details Date Type Department Care Team (Late st Contact Info) Description 05/22/[address], [address] [place] [address] Rusty Gamble PA-C [address] [place] [address] Erroneous encounter-disregard (levothyroxine (SYNTHROID/LEVOTHROID) 200 [...] on file Legal Sex Female 3:19 AM MEAT SELECTOR Gender Identity Not on file Sexual Orientation Not on file documented as of this encounter Miscellaneous Notes * Telephone Encounter - Rosaura Scruggs - 05/23/2017 8:24 AM CDT 3 month Supply sent 05/21/17. levothyroxine (SYNTHROID/LEVOTHROID) 200 MCG tablet Last Written Prescription Date: 05/21/17 Last Quantity: 90, # refills: 0 Last Office Visit with [facility], P or [facility] prescribing provider: 12/24/2016 TSH Date Value Ref [...] documented as of this encounter Care Teams Hydraulic Repairer Relationship Specialty Start Date End Date Rusty Gamble PA-C PCP - General Physician Chief Operator Synthesis - Medical 05/16/16 Rusty Gamble PA-C [address] [address] [address] PCP - Assigned PCP 07/07/17 11/25/18 Rusty Gamble PA-C [address] [address] [address] Assigned PCP 07/07/17 05/13/21 documented as of this encounter
--- OUTSIDE RECORDS SUMMARY | 2024-09-29 20:57 | XMS_ITS | Clinical Summary ---
Author Organization [employer] [facility] Address [place], [place] [address] Care Team Providers Care Leather Roller Name Role Phone CuevaKeisha NP Primary Care Provider [phone] Allergies No known active allergies Medications CPAPIndications [...] Type Department Care Team Description 09/03/2024 Refill [facility] [address] [place] [address] Cueva, Keisha E, HOME HEALTH REGISTERED NURSE Refill Request (Trazodone, Atorvastatin) 07/21/2024 Refill [facility] [address] [place], [place] [id number] Keisha Cueva NP Refill Request (Sertraline) from [...] Date Recorded PHQ-2 TOTAL SCORE 0 02/07/2024 [facility] - Occupational Stress [...] on file Legal Sex Female 6:30 AM INSOLVENCY CONSULTANT Gender Identity Not on file Sexual Orientation [...] for HIV without presence of risk factors ENTRY WRITER THIN PREP PAP SCREEN IMAGED Routine 07/17/2022 8:00 AM CDT Pap smear for cervical cancer screening ANTI HCV Routine 07/17/2022 7:39 AM CDT Need for hepatitis C screening test from Last 3 Months or Most Recently Relevant to Health Maintenance Results * LIPID PANEL (02/07/2024 7:39 AM CDT) CHOLESTEROL,TOTAL 186 100 - 199 mg/dL 02/07/2024 5:28 PM CDT [facility] Comment: Cholesterol, Total Reference Ranges Desirable <200 mg/dL Borderline 200-239 mg/dL High >=240 mg/dL TRIGLYCERIDES 143 <150 mg/dL 02/07/2024 5:28 PM CDT [facility] HDL CHOLESTEROL 51 >40 mg/dL 5:28 PM CDT [facility] NON-HDL CHOLESTEROL 135 <145 mg/dl 02/07/2024 5:28 PM CDT [facility] CHOL/HDL RATIO 3.65 <4.50 02/07/2024 5:28 PM CDT [facility] LDL CHOLESTEROL 106 <=130 mg/dL 02/07/2024 5:28 PM CDT [facility] VLDL CHOLESTEROL 29 <=30 mg/dL 02/07/2024 5:28 PM CDT [facility] PROVIDER ORDERED STATUS RANDOM 02/07/2024 5:28 PM CDT [facility] Blood BLOOD SPECIMEN / Unknown Venipuncture / Unknown 02/07/2024 7:39 AM CDT 02/07/2024 7:44 AM CDT us Keisha Cueva NP CHEMISTRY Final Res ult [facility] [address] [place] [address], [place] * XR MAMMO SUMAN BILAT SCREEN [...] care provider. XR MAMMO SUMAN BILAT SCREEN [[id number]] CLINICAL HISTORY: This is an asymptomatic 47 [...] areas of architectural distortion. us Keisha Cueva HOME HEALTH REGISTERED NURSE MAMMO Final Res ult * ANTI HIV 1/2 (05/23/2023 7:27 AM CDT) HIV-1/HIV-2 SCREEN Non-Reacti ve Non-Reacti ve 05/25/2023 10:56 PM CDT [facility] [employer] [facility] Comment:HIV-1 p24 and HIV-1/ HIV-2 Ab Not Detected. Blood BLOOD SPECIMEN / Unknown Venipuncture / Unknown 05/23/2023 7:27 AM CDT 05/23/2023 7:27 AM CDT us Keisha Cueva HOME HEALTH REGISTERED NURSE SEND OUTS Final Res ult [facility] [address] [place] [address], [place] * ENTRY WRITER THIN PREP PAP SCREEN IMAGED (07/17/2022 8:00 AM CDT) Case Report Gynecologic Cytology Report Case: [id number] Authorizing Provider: Keisha Cueva NP Collected: 07/17/2022 0800 Ordering Location: [facility] Received: 07/17/2022 0828 Clinic First Screen: Jan Conroy Specimen: ENTRY WRITER ThinPrep Vial Screening, Cervical 08/05/2022 9:38 AM INSOLVENCY CONSULTANT [facility] INTERPRETATION/ RESULT NEGATIVE FOR INTRAEPITHELIAL LESION OR MALIGNANCY (NIL) (none) 08/05/2022 9:38 AM INSOLVENCY CONSULTANT [facility] [employer]-[facility] ENTRAL LABORATORY IMEN ADEQUACY Satisfactory for evaluation Endocervical component present 08/05/2022 9:38 AM INSOLVENCY CONSULTANT [facility] [employer] [facility]AL LAB[facility] HPV REQUEST HPV and PAP 08/05/2022 9:38 AM INSOLVENCY CONSULTANT [facility] [employer] [facility] Date of LMP 02/12/2022 08/05/2022 9:38 AM INSOLVENCY CONSULTANT [facility] [employer] [facility] Last Pap Date 03/03/19 08/05/2022 9:38 AM INSOLVENCY CONSULTANT [facility] [employer] [facility] EN[facility]AL LABORATORY Last Pap Result NIL 9:38 AM INSOLVENCY CONSULTANT [facility] [employer] [facility] EN[facility]AL LAB[facility] Abnormal Pap or [place] Bx in last 5 years No 08/05/2022 9:38 AM INSOLVENCY CONSULTANT [facility] [employer] [facility] Menstrual Status Irregular Periods 08/05/2022 9:38 AM INSOLVENCY CONSULTANT [facility] [employer] [facility] [place] Bx Done Today No 08/05/2022 9:38 AM INSOLVENCY CONSULTANT [facility] [employer] [facility] Additional Information None given 08/05/2022 9:38 AM INSOLVENCY CONSULTANT [facility] [employer] [facility] Comment: Cytology is screened at [facility], Central Laboratory - [address], [place] [address] and [facility] - [address] [place] [address], [place] [address] and [facility] - [address] [place] [address] Interpreted at [facility] - [address] [place] [address], [place] [address] Automated Review Successful 08/05/2022 9:38 AM [facility] Comment:Specimen processed s uccessfully by automated anesthesiology faculty device, ThinPrep Imaging System[employer] ANCILLARY TESTING ENTRY WRITER HPV Ordered, Please see separate report 08/05/2022 9:38 AM [facility] Note The pap test is [...] pre-malignant and malignant lesions. 08/05/2022 9:38 AM [facility] Other (Cervical) Non-Blood / Unknown 07/17/2022 8:00 AM CDT 07/17/2022 8:28 AM CDT Keisha Cueva NP PATHOLOGY/CYTOLOGY Final Result Performing Organization Address [facility] Co de Phone Number [facility] [address] [place] [address], [place] * ANTI HCV (07/17/2022 7:39 AM CDT) HEPATITIS C ANTIBODY Non-React tasha Non-React tasha 07/19/2022 9:45 PM CDT [facility] Comment:Antibodies to HCV no t detected; does not exclude the possibility of exposure to HCV. Blood BLOOD SPECIMEN / Unknown Venipuncture / Unknown 07/17/2022 7:39 AM CDT 07/17/2022 7:39 AM CDT Keisha Cueva NP SEND OUTS Final Res ult Performing Organization Address City/[facility] Co de Phone Number [facility] [address] [place] [address], [place] from Last 3 Months or Most Recently Relevant to Health Maintenance Insurance [employer] NON-IN-ITS Advance Directives * Full Code (Latest Code Status on File) Date Activated Date Inactivated Comments 10/29/2008 5:46 PM 10/31/2008 12:56 AM * Full Code Date Activated Date Inactivated Comments 10/29/2008 1:06 PM 10/29/2008 5:46 PM Care Teams Leather Roller Relationship Specialty Start [place] [address] [place], [place] [phone] PCP - General Nurse Practitioner 08/05/18
--- OUTSIDE RECORDS SUMMARY | 2024-09-29 20:58 | XMS_ITS | Encounter Summary ---
Author Organization [employer] Address [address] [place] [address]. 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 Gender Identity Not on file Sexual Orientation Not on file documented as of this encounter Miscellaneous Notes * Telephone Encounter - Rosalva Cornejo RN - 05/21/2017 9:03 AM CDT Levothyroxine Last Written Prescription Date: 10/08/2016 Last Quantity: 90, # refills: 1 Last Office Visit with [facility], [facility] or [facility] prescribing provider: 12/24/2016 TSH Date Value Ref Range Status 10/05/2016 1.04 0.40 - 4.00 mU/L Final Medication is being filled for 1 time refill only due to: Patient needs to be seen because patient was advised to follow up in 6 months for blood sugars and thyroid. Patient notified via [employer]. Rosalva Cornejo RN documented in this encounter Plan of Treatment Not on file documented as of this encounter Visit Diagnoses Diagnosis Other specified hypothyroidism documented in this encounter Additional Health Concerns Assessment Noted Time PHQ-9 Depression Total Score: 1 12/09/19 17 7:06 AM CDT documented as of this encounter Care Teams Manager Six Sigma Relationship Specialty Start Date End Date Rusty Gamble PA-C PCP - General Physician Treasury Consultant - Medical 05/16/16 Rusty Gamble PA-C [address] [place] [address] PCP - Assigned PCP 07/07/17 11/25/18 Rusty Gamble [place]-C [id number] [place] [address] Assigned PCP 07/07/17 05/13/21 documented as of this encounter
[2024-09-29] MEDS: ONDANSETRON 2 MG/ML inj 4 MG IVP (21:20)
[2024-09-29] MEDS: 0.9 % SODIUM CHLORIDE 1000 ml 1,000 ML IV (21:20)
[2024-09-29 21:21] LABS: Amorphous Sediment Urine Moderate; Bacteria Urine Many; RBC Urine 25-50 (0-2); Squamous Epithelial Cell Urine Many (None-Few); WBC Urine 0-2 (0-5)
[2024-09-29 21:33] LABS: Chloride* 99 mmol/L (96-114)
[2024-09-29 21:34] LABS: Potassium* 3.3 mmol/L (3.6-5.1); Sodium* 135 mmol/L (135-149)
[2024-09-29 21:36] LABS: Creatinine* 0.7 mg/dL (0.5-1.5); Est. Creatinine Clearance* 90.36; Estimated Glomerular Filt Rate 108 ml/min
[2024-09-29 21:37] LABS: Anion Gap 11 mEq/L (7-15); Blood Urea Nitrogen* 17 mg/dL (5-24); Carbon Dioxide* 25 mmol/L (20-32); Glucose* 176 mg/dL (60-115)
[2024-09-29] MEDS: KETOROLAC 30 MG/ML inj IVP (22:20)
[2024-09-29 22:24] VITALS: BP 130/74; PULSE 70; RESP 17; O2SAT 95
--- NOTE | 2024-09-29 23:39 | CRLHL7_ITS ---
For Patients: As a result of the Century Cures Act, medical imaging exams and procedure reports are released immediately into your electronic medical record. You may view this report before your referring provider. If you have questions, please contact your health care provider. INDICATION: Right flank pain. TECHNIQUE: CT of the abdomen and pelvis without IV contrast. Coronal and sagittal reconstructions. COMPARISON: None. FINDINGS: Lower chest: 2 mm and 4 mm noncalcified pleural-based pulmonary nodules in the right middle lobe (series 3 images 4 and 8). The lung bases are otherwise clear. Trace pericardial effusion versus pericardial thickening. Liver: Unremarkable. Gallbladder and bile ducts: Cholecystectomy. No biliary dilatation. Spleen: Enlarged measuring 13.2 cm in length. Pancreas: Unremarkable. Adrenal glands: The right adrenal gland is negative. There is a 1.3 cm left adrenal nodule measuring 24 HU. Kidneys, Ureters, and Bladder: No hydronephrosis or ureteral dilation. No intrarenal or ureteral calculi. No bladder wall thickening. Reproductive organs: Unremarkable noncontrast appearance. GI tract/Peritoneum: No small bowel dilation. Moderate amount of stool throughout the colon. There is a small partially calcified soft tissue nodule along the anterior aspect of the mid transverse colon which is nonspecific but likely benign (series 2, image 63). Negative appendix. No intraperitoneal free air or fluid. Vasculature: Abdominal aorta is normal in caliber. Lymph nodes: No lymphadenopathy. Abdominal Wall: Unremarkable. Bones: Unremarkable for age. IMPRESSION: 1. No acute findings in the abdomen or pelvis on this noncontrast exam. No hydronephrosis or obstructing urinary calculi. 2. Indeterminate left adrenal nodule. This could be further evaluated with nonemergent adrenal protocol CT or MRI. 3. Noncalcified pulmonary nodules in the right middle lobe measuring up to 4 mm. Follow-up per Fleischner society guidelines. 4. Mild splenomegaly. Please note that all CT scans at this facility use dose modulation, iterative reconstruction, and/or weight-based dosing when appropriate to reduce radiation dose to as low as reasonably achievable. Dictated by Catina Valle MD @ 09/30/2024 12:18:54 AM (Electronically Signed)
[2024-09-29 23:58] VITALS: BP 136/88; PULSE 71; RESP 18; TEMP 36.3; O2SAT 98
[2024-09-30] MEDS: HYDROmorphone 0.5 mg/0.5 ml inj IVP (00:05)
[2024-09-30 00:15] LABS: Basophils Absolute Auto 0.02 K/uL (0.00-0.30); Basophils Percent Auto 0.3 % (0.0-3.0); Eosinophils Absolute Auto 0.09 K/uL (0.00-0.50); Eosinophils Percent Auto 1.4 % (0.0-7.0); Hematocrit 41.3 % (33.0-51.0); Hemoglobin* 13.5 gm/dL (12.0-16.0); Immature Granulocytes Abs Auto 0.06 K/uL (0.00-0.30); Immature Granulocytes Pct Auto 0.9 %; Lymphocytes Absolute Auto 2.44 K/uL (0.90-2.90); Lymphocytes Percent Auto 37.8 % (20-44); Mean Corpuscular HGB Conc 33 gm/dL (32-36); Mean Corpuscular Hemoglobin 28 pg (26-34); Mean Corpuscular Volume 87 fL (80-100); Monocytes Percent Auto 6.2 % (0.0-11.0); Neutrophils Absolute Auto 3.45 K/uL (1.7-7.0); Neutrophils Percent Auto 53.4 % (42.0-72.0); Platelet Count* 270 K/uL (140-440); RDW Coefficient of Variation % 13.1 % (11.5-15.5); Red Blood Count 4.77 m/uL (4.00-5.20); White Blood Count* 6.46 K/uL (4.50-11.00)
[2024-09-30 00:16] LABS: Slide Review Reflex No
== END 2024-09-30 00:52 | disposition home or self-care (01) ==
PROVIDERS: Emergency Provider Emergency Medicine Emergency Medical Services; PCP Nurse Practitioner Family
DX: K52.9 Noninfective gastroenteritis and colitis, unspecified (principal)
CPT/HCPCS: 36415; 74176; 80048; 81001; 85025; 87086; 96361; 96374; 96375; 99284; J1171; J1885; J2405; J7030

== ENCOUNTER 2025-02-05 07:20 | Outpatient (CLI) | payer BC, SELFPAY ==
--- NOTE | 2025-02-05 08:45 | P.ANES_ITS ---
Anesthesia Charges Start Date/Time Anesthesia Start Date: 02/05/25 Anesthesia Start Time: 08:22 Stop Date/Time Anesthesia Stop Date: 02/05/25 Anesthesia Stop Time: 08:44 Coding CPT Codes CPT Codes: ANES LWR INTST SCR COLSC - 65325 ([id number]) QK - NURSES' REGISTRY DIRECTOR 2-4 CNCRNT ANES PROC, QX - SALESPERSON WIGS SVC W/ MED DIRECTION, P3 - PATIENT W/SEVERE SYS DISEASE
--- NOTE | 2025-02-05 08:45 | W.ANESCHARGE ---
Anesthesia Charges Start Date/Time Anesthesia Start Date: 02/05/25 Anesthesia Start Time: 08:22 Stop Date/Time Anesthesia Stop Date: 02/05/25 Anesthesia Stop Time: 08:44 Coding CPT Codes CPT Codes: ANES LWR INTST SCR COLSC - 36488 ([id number]) QK - COMMUNICATIONS INSTRUCTOR 2-4 CNCRNT ANES PROC, QX - CHASSIS DRIVER SVC W/ MED DIRECTION, P3 - PATIENT W/SEVERE SYS DISEASE
--- NOTE | 2025-02-05 08:46 | P.ANES_ITS ---
Anesthesia Charges Start Date/Time Anesthesia Start Date: 02/05/25 Anesthesia Start Time: 08:22 Stop Date/Time Anesthesia Stop Date: 02/05/25 Anesthesia Stop Time: 08:44 Coding CPT Codes CPT Codes: ANES LWR INTST SCR COLSC - 53815 ([id number]) P3 - PATIENT W/SEVERE SYS DISEASE, QK - SUPERINTENDENT TERMINAL 2-4 CNCRNT ANES PROC, QX - ANALYTICAL RESEARCH PROGRAM MANAGER SVC W/ MD MED DIRECTION
--- NOTE | 2025-02-05 08:46 | W.ANESCHARGE ---
Anesthesia Charges Start Date/Time Anesthesia Start Date: 02/05/25 Anesthesia Start Time: 08:22 Stop Date/Time Anesthesia Stop Date: 02/05/25 Anesthesia Stop Time: 08:44 Coding CPT Codes CPT Codes: ANES LWR INTST SCR COLSC - 01974 ([id number]) P3 - PATIENT W/SEVERE SYS DISEASE, QK - NIGHT COORDINATOR 2-4 CNCRNT ANES PROC, QX - FRAMING MILL OPERATOR HELPER SVC W/ MD MED DIRECTION
== END 2025-02-05 07:21 | disposition home or self-care (01) ==
LOC: OP CLINIC 07:21
PROVIDERS: PCP Nurse Practitioner Family; Visit Provider Internal Medicine Gastroenterology
DX: Z12.11 Encounter for screening for malignant neoplasm of colon (principal)
CPT/HCPCS: 00812; 45378; J2704